=== PATIENT | female | born 1950 | race Caucasian/White ===

== ENCOUNTER 2016-05-05 02:25 | Emergency (ER) | payer BC, MEDICARE ==
--- NOTE | 2016-05-05 02:39 | ER Document Report ---
ED Medical Screen (RME) - General Stated Complaint: DIFFICULTY BREATHING Time seen by provider: 02:36 Mode of Arrival: Wheelchair Information source: Patient Notes: 65-year-old female presents to ED shortness of breath this evening. states she has been short of breath all evening she he tried to get her to calm down and settled down and go to sleep she went to sleep for a few minutes woke up more short of breath and he says having a panic attack. They called their doctor in [place] where they live he told them to come to the emergency room due to her COPD. Lungs clear pulse ox 96 respirations 24. Will treat with DuoNeb and albuterol and have seen in the back. I have greeted and performed a rapid initial assessment of this patient. A comprehensive ED assessment and evaluation of the patient, analysis of test results and completion of medical decision making process will be conducted by an additional ED providers. Physical Exam - Vital signs Vitals: Temp Pulse Resp BP Pulse Ox 98.3 F 89 24 H 132/51 H 96 05/05/16 02:30 05/05/16 02:30 05/05/16 02:30 05/05/16 02:30 05/05/16 02:30 Course - Vital Signs Vital signs: Temp Pulse Resp BP Pulse Ox 98.3 F 89 24 H 132/51 H 96 05/05/16 02:30 05/05/16 02:30 05/05/16 02:30 05/05/16 02:30 05/05/16 02:30
[2016-05-05] MEDS ORDERED: IPRATROPIUM/ALBUTEROL 0.5-2.5 MG/3 ML AMPUL NEB ONE (02:40)
[2016-05-05] MEDS ORDERED: ALBUTEROL SULFATE 0.083% NEB 2.5 MG/3 ML AMPUL NEB SCH (02:45)
[2016-05-05] MEDS ORDERED: AZITHROMYCIN 250 MG TABLET PO ONE (06:53)
[2016-05-05] MEDS ORDERED: PREDNISONE 20 MG TABLET PO ONE (06:53)
[2016-05-05] MEDS ORDERED: ALBUTEROL SULFATE HFA (90 MCG/PUFF) 8 GM MDI (1 MDI/ER DISP) IH ONE (06:53)
--- NOTE | 2016-05-05 07:00 | ER Document Report ---
ED General - General Chief Complaint: Shortness Of Breath Stated Complaint: DIFFICULTY BREATHING Mode of Arrival: Wheelchair - HPI Patient complains to provider of: shortness of breath Notes: Patient is from [facility] [place] for vacation has a history of COPD coming in for shortness of breath. States that fevers and chills no nausea no vomiting no chest pain. Patient was of breath to take your inhaler Spiriva prior to arrival with no relief. Patient denies any recent steroids recent antibiotics. Upon my arrival patient otherwise sitting comfortably no signs of distress - Related Data Allergies/Adverse Reactions: No Known Allergies Allergy (Unverified 05/05/16 05:10) Past Medical History - General Information source: Patient - Social History Smoking Status: Former Smoker Drug Abuse: None Family History: Reviewed & Not Pertinent Patient has suicidal ideation: No Patient has homicidal ideation: No Pulmonary Medical History: Reports: Hx COPD Renal/ Medical History: Denies: Hx Peritoneal Dialysis - Immunizations Hx Diphtheria, Pertussis, Tetanus Vaccination: Yes Review of Systems - Review of Systems Constitutional: No symptoms reported EENT: No symptoms reported Cardiovascular: No symptoms reported Respiratory: Cough, Short of breath, Wheezing Gastrointestinal: No symptoms reported Genitourinary: No symptoms reported Female Genitourinary: No symptoms reported Musculoskeletal: No symptoms reported Skin: No symptoms reported Hematologic/Lymphatic: No symptoms reported Neurological/Psychological: No symptoms reported -: Yes All other systems reviewed and negative Physical Exam - Vital signs Vitals: Temp Pulse Resp BP Pulse Ox 98.3 F 89 24 H 132/51 H 96 05/05/16 02:30 05/05/16 02:30 05/05/16 02:30 05/05/16 02:30 05/05/16 02:30 Interpretation: Normal - General General appearance: Appears well, Alert - HEENT Head: Normocephalic, Atraumatic Eyes: Normal Pupils: PERRL - Respiratory Respiratory status: No respiratory distress Chest status: Nontender Breath sounds: Wheezing Chest palpation: Normal - Cardiovascular Rhythm: Regular Heart sounds: Normal auscultation Murmur: No - Abdominal Inspection: Normal Distension: No distension Bowel sounds: Normal Tenderness: Nontender Organomegaly: No organomegaly - Back Back: Normal, Nontender - Extremities General upper extremity: Normal inspection, Nontender, Normal color, Normal ROM , Normal temperature General lower extremity: Normal inspection, Nontender, Normal color, Normal ROM , Normal temperature, Normal weight bearing. No: Tequila's sign - Neurological Neuro grossly intact: Yes Cognition: Normal Orientation: AAOx4 [place] Com[place] Scale Eye Opening: Spontaneous [place] Coma Scale Verbal: Oriented [place] Coma Scale Motor: Obeys Commands Wendy Coma Scale Total: 15 Speech: Normal Motor strength normal: LUE, RUE, LLE, RLE Sensory: Normal - Psychological Associated symptoms: Normal affect, Normal mood - Skin Skin Temperature: Warm Skin Moisture: Dry Skin Color: Normal Course - Re-evaluation Re-evalutation: 05/05/16 13:57 Patient looks to have a slight COPD exacerbation possible early bronchitis. Patient will be treated with bronchodilators steroids and Z-Pedro. Otherwise patient shows no sign of hypoxia no other critical etiology for her symptoms. Patient will be discharged home - Vital Signs Vital signs: Temp Pulse Resp BP Pulse Ox 98.2 F 89 17 118/74 97 05/05/16 07:05 05/05/16 07:05 05/05/16 07:05 05/05/16 07:05 05/05/16 07:05 Discharge - Discharge Clinical Impression: Acute bronchitis with COPD Condition: Good Disposition: HOME, SELF-CARE Instructions: Chronic Obstructive Lung Disease ([facility]), Bronchitis With Bronchospasm (Wheezing) ([facility]) Additional Instructions: Please use the inhaler that we gave you here in the ER 2 puffs at least every 4 hours for the next 5 days. Return to the ER symptoms worsen. Take other medications as prescribed. Please drinking of water to stay hydrated Prescriptions: Azithromycin [Zithromax 250 mg Tablet] 250 mg PO ASDIR PRN #6 tablet PRN Reason: Prednisone [Deltasone] 60 mg PO DAILY 5 Days Forms: Return to Work
[2016-05-05 07:16] VITALS: BP 118/74
== END 2016-05-05 07:10 | disposition home or self-care (01) ==
LOC: ER 02:25
DX: J44.0 Chronic obstructive pulmonary disease with (acute) lower respiratory infection (principal); J20.9 Acute bronchitis, unspecified; R06.02 Shortness of breath; R50.9 Fever, unspecified; Z87.891 Personal history of nicotine dependence; R05 Cough
CPT/HCPCS: 94640; 99285; 71020; A9270 ×4; J3490; J7512; J7620